=== PATIENT | male | born 1960 | race Caucasian/White ===

== ENCOUNTER 2017-09-12 13:29 | Observation (INO) ==
[2017-09-12] MEDS: NITROGLYCERIN 0.4 MG/TAB BTL SL PRN ×3 (13:40→13:55)
[2017-09-12] MEDS ORDERED: ASPIRIN 81 MG TAB.CHEW PO ONE (13:42)
[2017-09-12] MEDS ORDERED: ASPIRIN 81 MG TAB.CHEW ONE (13:47)
[2017-09-12 13:59] LABS: Hematocrit 41.3 % (42.0-52.0); Hemoglobin 14.8 gm/dL (13.5-18.0); Mean Cell Volume 88.6 fl (78-100); Mean Corpuscular Hemoglobin 31.8 pg (27-31); Mean Corpuscular Hgb Conc 35.8 g/dl (32-36); Mean Platelet Volume 9.4 fl (8-11.3); Neutrophil # 4.1 K/mm3 (1.3-6.0); Neutrophil % 67.4 % (42-75.0); Platelet Count 167 K/mm3 (150-450); Red Blood Count 4.66 M/mm3 (4.7-6.0); Red Cell Distribution Width 12.8 % (11.5-14.0); White Blood Count 6.1 K/mm3 (4.0-10.5)
[2017-09-12] MEDS ORDERED: MAG HYDROX/ALUMINUM HYD/SIMETH 30 ML UDC PO ONE (14:02)
[2017-09-12] MEDS ORDERED: BELLADONNA ALKALOIDS/PHENOBARB 60 ML BTL PO ONE (14:02)
[2017-09-12] MEDS ORDERED: LIDOCAINE HCL 20 ML UDC PO ONE (14:02)
[2017-09-12 14:07] LABS: Prothrombin Time (Patient) 10.3 Seconds (9.0-11.0)
[2017-09-12 14:14] LABS: INR 1.03 INR (0.90-1.10)
[2017-09-12 14:20] LABS: ALT 25 U/L (19-67); AST 20 U/L (0-48); Alkaline Phosphatase * 96 U/L (50-170); Anion Gap 13.1 mmol/L (6.8-13.8); BUN/Creatinine Ratio 13.5 (9.0-21.6); Bilirubin, Total 0.8 mg/dL (0.0-1.1); Blood Urea Nitrogen 18 mg/dL (6-23); Ca. Corrected For Albumin 8.7 mg/dL (8.4-10.2); Carbon Dioxide 28.7 mmol/L (24-32.6); Chloride 102 mmol/L (97-106); Glucose * 114 mg/dL (70-110); Potassium 3.8 mmol/L (3.4-4.6); Sodium 140 mmol/L (132-142); Total Protein 7.2 gm/dL (6.2-8.2); Troponin I Less than 0.017 ng/ml (0.00-0.10)
--- NOTE | 2017-09-12 14:53 | ERNOTE ---
Chest Pain/Cardiac HPI Date of Service: 09/12/17 Chief Complaint: Chest Pain Time Seen by Provider: 09/12/17 13:30 Source: patient, family, RN/MD, RN notes reviewed, past records Exam Limitations: no limitations Immunizations: IMMUNIZATION HX Immunizations Up to Date Yes History of Influenza Vaccine Yes Hx Pneumococcal Vaccination No Allergies/Adverse Reactions: Allergies simvastatin [From Zocor] Adverse Reaction (Mild, Verified 09/12/17 13:40) joint aches joint aches hay fever Allergy (Mild, Uncoded 09/12/17 13:40) Sneezing Home Medications: HOME MEDICATIONS Clopidogrel Bisulfate [Plavix] 75 mg PO DAILY 08/25/12 [Last Taken 09/05/17] Nitroglycerin 0.4 mg SL PRN #30 tab.subl 08/25/12 [Last Taken 10/17/13 12:00] Rosuvastatin Calcium [Crestor] 20 mg PO DAILY 08/25/12 [Last Taken 09/11/17] Diltiazem HCl [Diltiazem 24Hr ER] 360 mg PO DAILY 02/03/13 [Last Taken 09/11/17] Acetaminophen [Tylenol] 650 mg PO Q6H PRN 10/17/13 [Last Taken Unknown] Aspirin [Aspirin Enteric Coated] 81 mg PO DAILY #0 tablet. 10/18/13 [Last Taken 09/05/17] Metoprolol Succinate [Toprol Xl] 25 mg PO DAILY 02/18/14 [Last Taken 09/11/17] meloxicam 15 mg tablet 15 mg PO DAILY PRN 09/03/17 [Last Taken 09/08/17] Pain Score #1 Pain Score: 7 Narrative: Warren is a 57 year old male who presents to the ED with chest pain. He was just discharged after having a colonoscopy. He was in the parking lot and came back in. His pain is in his left chest and radiates down his left arm. He reports that he had the same pain with his previous heart attacks. He also reports some shortness of breath. Date (Duration): 09/12/17 Timing: constant Severity/Quality: moderate, aching Location: left chest Chest Pain Radiation: arms - Left Activities at Onset: other Nitro Today/Relief: no nitro taken today Aspirin Treatment Today: no aspirin today Associated Symptoms: Absent: headache, dizziness, cough, heartburn, nausea, vomiting, abdominal pain Prior Chest Pain/Cardiac Workup: Reports: prior chest pain, heart attack, cardiac cath Prior Treatment: Reports: recently seen Review of Systems - Review of Systems Constitutional: Absent: recent illness, fever, chills EYE: Present: no symptoms reported ENT: Present: no symptoms reported Respiratory: Present: shortness of breath. Absent: cough, orthopnea, wheezing Cardiology: Present: chest pain. Absent: palpitations, syncope, edema Gastrointestinal/Abdominal: Absent: nausea, vomiting, abdominal pain Genitourinary: Present: no symptoms reported Musculoskeletal: Absent: muscle pain, joint pain Skin: Absent: lesions, lumps Neurological: Absent: headache, dizziness/light-headedness Endocrine: Present: no symptoms reported Hematologic/Lymphatic: Present: easy bruising, easy bleeding Psych: Present: no symptoms reported Medical History (Last Reviewed 09/12/17 @ 13:39 by Amna Benjamin RN) Current drinker of alcohol Former tobacco use Lives with spouse Rectal bleeding Onset Date: ~04/13/10 Uses hearing aid Bilateral tinnitus Onset Date: Unknown Coronary artery disease Onset Date: ~2007 Hard of hearing Onset Date: Unknown Hyperlipidemia Onset Date: Unknown Hypertension Onset Date: Unknown Injury Onset Date: ~1994 History of blood transfusion Onset Date: Unknown History of unstable angina Onset Date: 03/08/10 Myocardial infarction Onset Date: Unknown Surgical History: Surgical History (Last Updated 09/12/17 @ 13:39 by Amna Benjamin RN) Hx of colonoscopy History of cardiac catheterization Onset Date: Unknown History of coronary artery stent placement Onset Date: 09/04/07 History of hand surgery Onset Date: 01/26/95 history of leg surgery Onset Date: ~1973 Family History: Family History (Last Reviewed 09/12/17 @ 10:51 by Vonda Cesar) Brother Coronary artery disease Father Age: 84 Prostate cancer Dementia COPD (chronic obstructive pulmonary disease) Mother Age: 79 Dementia CVA (cerebral vascular accident) Brother Alive and well Son Alive and well Son Alive and well Social History: Preferred Language Maltese Do you have any rastafari or No cultural preference? Smoking Status Never smoker Alcohol Use occasionally Drug Use none Physical Exam - Physical Exam General Appearance: Present: wd/wn, mild distress, other - Groggy Head Exam: Present: normal inspection Neck: Present: normal inspection, nontender, supple, full range of motion Respiratory: Present: no respiratory distress, no accessory muscle use, chest nontender, wheezing - mild Cardiovascular/Chest: Present: regular rate, rhythm, no murmur, normal peripheral pulses Gastrointestinal/Abdominal: Present: nontender, nondistended, soft Extremity Exam: Present: normal inspection, normal range of motion, no edema Neurological Exam: Present: oriented, no motor/sensory deficits, other - Dysphoric. Absent: alert, normal mood/affect Skin Exam: Present: normal color, warm/dry ED Progress - Results and Orders Patient's Lab Results:: I have reviewed the patient's lab results. - Vital Signs Patient's Vital Signs:: I have reviewed the patient's vital signs. Vital Signs: Vital Signs 09/12/17 13:29 09/12/17 13:49 09/12/17 13:53 Temperature 36.3 C Pulse Rate 98 98 90 Respiratory Rate 14 99 H Blood Pressure 171/89 H 146/92 H O2 Sat by Pulse Oximetry 90 L 95 09/12/17 13:56 09/12/17 14:08 09/12/17 14:27 Temperature Pulse Rate 87 78 93 Respiratory Rate 14 13 13 Blood Pressure 138/84 126/78 122/79 O2 Sat by Pulse Oximetry 94 96 94 09/12/17 14:38 Temperature Pulse Rate 91 Respiratory Rate 18 Blood Pressure 126/80 O2 Sat by Pulse Oximetry 97 - EKG EKG: NSR EKG read: Reviewed by me - X-Ray X-Ray #1 X-Ray: chest Interpretation: Interp. by me X-ray Comments: No acute cardiopulmonary process - Progress/Reassessment Chief Complaint: Chest Pain Progress:: Improved Plan - Plan Plan: Chest pain improved slightly with Ntg SL x3 from 08/26 to 06/26. A GI cocktail was given as anesthesia had reported that the patient had a lot of secretions and required quite a bit of suctioning after the procedure. His pain did not change with this. His city collector is Dr. Man. The patient requested that his city collector be contacted but he is on vacation until 09/15. His PCP, Dr. Fonseca, was contacted and the patient will be admitted to med/surg as observation status to r/o HI. The patient is more alert with stable vitals and his lungs are now clear. He rates his pain at 4/10. He believes it is improving with rest. He does not wish to take anything else for pain currently. Departure Clinical Impression: Chest pain, rule out acute myocardial infarction - Departure Disposition: Still a patient Condition: Stable Referrals: Pepe Fonseca DO [Primary Care Provider] -
[2017-09-12] MEDS ORDERED: ACETAMINOPHEN 325 MG TABLET PO PRN (16:05)
[2017-09-12] MEDS ORDERED: MELOXICAM 15 MG TABLET PO PRN (16:05)
--- NOTE | 2017-09-12 16:44 | HP ---
Chief Complaint - Chief Complaint Date of Service: 09/12/17 Time of Service: 16:43 Chief Complaint: Chest Pain History of Present Illness: Jim is a 57 yo male that had colonoscopy today. During the procedure he had increased mucus production and anesthesia suctioned to help with respiration. Upon awakening from sedation he reported chest pain that was felt to be related to the procedure vs inflammation from the mucus. He was discharged from post anesthesia care but after leaving he felt the chest pain worsened and he returned to the ER. Initial evaluation in the ER was negative for acute OH, however due to his history of coronary artery disease and having held his plavix for a week prior to colonosopy medicine was contacted for admission for further observation. He reports that prior to colonoscopy he had been doing well without concerns. Since awakening he has noticed cough, increased phlegm, and hoarseness. Medical History (Last Reviewed 09/29/17 @ 10:09 by Kim Ortega RN) Lives with spouse (Acute) Onset Date: Unknown Uses hearing aid (Acute) Onset Date: Unknown Current drinker of alcohol (Acute) Onset Date: Unknown Former tobacco use (Acute) Onset Date: Unknown Rectal bleeding (Acute) Onset Date: 04/13/10 Hard of hearing (Chronic) Onset Date: Unknown Hyperlipidemia (Chronic) Onset Date: Unknown Myocardial infarction (Inactive) Onset Date: Unknown Injury (Resolved) Onset Date: 1994 Hypertension (Chronic) Onset Date: Unknown Coronary artery disease (Chronic) Onset Date: 2007 History of blood transfusion (Inactive) Onset Date: Unknown Bilateral tinnitus (Chronic) Onset Date: Unknown History of unstable angina (Inactive) Onset Date: 03/08/10 Bronchitis Surgical History: Surgical History (Last Reviewed 09/29/17 @ 10:09 by Kim Ortega RN) Hx of colonoscopy (Resolved) Onset Date: 09/12/17 history of leg surgery (Resolved) Onset Date: 1973 History of hand surgery (Resolved) Onset Date: 01/26/95 History of coronary artery stent placement (Resolved) Onset Date: 09/04/07 History of cardiac catheterization (Resolved) Onset Date: Unknown Family History: Family History (Last Reviewed 09/29/17 @ 10:09 by Kim Ortega RN) Brother Coronary artery disease Father Age: 84 Prostate cancer Dementia COPD (chronic obstructive pulmonary disease) Mother Age: 79 Dementia CVA (cerebral vascular accident) Brother Alive and well Son Alive and well Son Alive and well Social History: Patient Lives/Resources With Spouse Utilized Occupation Heavy equipment Preferred Language [place] Citizen Do you have any mormon or No cultural preference? Smoking Status Former smoker Have you smoked in the past 12 No months Do you dip or chew tobacco No Alcohol Use occasionally Drug Use none Review Of Systems (GEN) - Review of Systems Generalized/Overall Review: Present: Chills. Absent: Weakness, Fever, Fatigue EENTM: Present: Throat Pain. Absent: Ear Pain Respiratory: Present: Cough, Shortness of Breath Cardiac: Present: Chest Pain. Absent: Edema, Palpitations Abdominal: Absent: Nausea, Vomiting Genitourinary: Present: No Symptoms Reported Musculoskeletal: Present: No Symptoms Reported Neurological: Present: No Symptoms Reported Skin: Present: No Symptoms Reported Immunizations: IMMUNIZATION HX Immunizations Up to Date Yes History of Influenza Vaccine Yes Hx Pneumococcal Vaccination No Allergies/Adverse Reactions: Allergies Allergy/AdvReac Type Severity Reaction Status Date / Time simvastatin [From Zocor] AdvReac Mild joint aches Verified 09/29/17 10:10 hay fever Allergy Mild Sneezing Uncoded 09/12/17 13:40 Home Medications: HOME MEDICATIONS Clopidogrel Bisulfate [Plavix] 75 mg PO DAILY 08/25/12 [Last Taken 09/05/17] Nitroglycerin 0.4 mg SL PRN #30 tab.subl 08/25/12 [Last Taken 10/17/13 12:00] Rosuvastatin Calcium [Crestor] 20 mg PO DAILY 08/25/12 [Last Taken 09/11/17] Diltiazem HCl [Diltiazem 24Hr ER] 360 mg PO DAILY 02/03/13 [Last Taken 09/11/17] Aspirin [Aspirin Enteric Coated] 81 mg PO DAILY #0 tablet.dr 10/18/13 [Last Taken 09/05/17] Metoprolol Succinate [Toprol Xl] 25 mg PO DAILY 02/18/14 [Last Taken 09/11/17] amoxicillin 500 mg capsule 500 mg PO BID 10 Days #20 cap 09/27/17 [Last Taken Unknown] meloxicam 15 mg tablet 15 mg PO DAILY PRN #30 tab 09/29/17 [Last Taken Unknown] Exam - Exam Vital Signs: Vital Signs - Last Taken Temp 36.5 C 09/12/17 15:00 Pulse 106 H 09/12/17 16:28 Resp 16 09/12/17 15:00 BP 141/78 H 09/12/17 15:00 Pulse Ox 94 09/12/17 14:53 Constitutional: Present: Alert, Oriented x3, Cooperative ENT Exam: Present: hearing grossly normal Eye Exam: bilateral eye: normal inspection Respiratory: Present: lungs clear, normal breath sounds Cardiovascular/Chest: Present: regular rate, rhythm, no murmur Abdomen: Present: Normal bowel sounds, soft, nontender, nondistended, no rebound tenderness, no hepatospenomegaly Skin Exam: Present: normal color, warm/dry, no cyanosis Appearance: Present: appropriate appearance, appropriate insight Eye contact: Present: cooperative, good eye contact, normal speech Thoughts: Present: normal thought pattern, no apparent hallucination Diagnostic Studies: Abnormal Lab Results 09/12/17 09/12/17 Range/Units 13:51 13:51 RBC 4.66 L (4.7-6.0) M/mm3 Hct 41.3 L (42.0-52.0) % MCH 31.8 H (27-31) pg Est GFR (Non-Af Amer) 59 L (60-130) mL/min Random Glucose 114 H (70-110) mg/dL Laboratory Results WBC 6.1 K/mm3 (4.0-10.5) 09/12/17 13:51 RBC 4.66 M/mm3 (4.7-6.0) L 09/12/17 13:51 Hgb 14.8 gm/dL (13.5-18.0) 09/12/17 13:51 Hct 41.3 % (42.0-52.0) L 09/12/17 13:51 MCV 88.6 fl (78-100) 09/12/17 13:51 MCH 31.8 pg (27-31) H 09/12/17 13:51 MCHC 35.8 g/dl (32-36) 09/12/17 13:51 RDW 12.8 % (11.5-14.0) 09/12/17 13:51 Plt Count 167 K/mm3 (150-450) 09/12/17 13:51 MPV 9.4 fl (8-11.3) 09/12/17 13:51 Immature Gran % (Auto) 0.20 % (0.001-0.429) 09/12/17 13:51 Immature Gran # (Auto) 0.01 K/mm3 (0.000-0.0310) 09/12/17 13:51 Neutrophils % 67.4 % (42-75.0) 09/12/17 13:51 Lymphocytes % 25.5 % (20-51) 09/12/17 13:51 Monocytes % 6.4 % (0.0-9) 09/12/17 13:51 Eosinophils % 0.3 % (0.0-3.0) 09/12/17 13:51 Basophils % 0.2 % (0.0-1.0) 09/12/17 13:51 Nucleated RBC % 0.0 k/mm3 (0-1) 09/12/17 13:51 Neutrophils # 4.1 K/mm3 (1.3-6.0) 09/12/17 13:51 Lymphocytes # 1.55 k/mm3 (1.5-3.5) 09/12/17 13:51 Monocytes # 0.4 k/mm3 (0.0-1.0) 09/12/17 13:51 Eosinophils # 0.0 k/mm3 (0.0-0.7) 09/12/17 13:51 Absolute Basophils 0.0 k/mm3 (0.0-0.1) 09/12/17 13:51 PT 10.3 Seconds (9.0-11.0) 09/12/17 13:51 INR (Anticoag Therapy) 1.03 INR (0.90-1.10) 09/12/17 13:51 PTT (Maryjane) 27.0 Seconds (24-32) 09/12/17 13:51 Sodium 140 mmol/L (132-142) 09/12/17 13:51 Plasma Sodium 140 mmol/L (130-142) 09/12/17 13:51 Potassium 3.8 mmol/L (3.4-4.6) 09/12/17 13:51 Chloride 102 mmol/L (97-106) 09/12/17 13:51 Carbon Dioxide 28.7 mmol/L (24-32.6) 09/12/17 13:51 Anion Gap 13.1 mmol/L (6.8-13.8) 09/12/17 13:51 BUN 18 mg/dL (6-23) 09/12/17 13:51 Creatinine 1.33 mg/dL (0.4-1.4) 09/12/17 13:51 Est GFR (Non-Af Amer) 59 mL/min (60-130) L 09/12/17 13:51 BUN/Creatinine Ratio 13.5 (9.0-21.6) 09/12/17 13:51 Random Glucose 114 mg/dL (70-110) H 09/12/17 13:51 Calcium 9.0 mg/dL (7.9-10.9) 09/12/17 13:51 Calcium Adj for Albumin 8.7 mg/dL (8.4-10.2) 09/12/17 13:51 Total Bilirubin 0.8 mg/dL (0.0-1.1) 09/12/17 13:51 AST 20 U/L (0-48) 09/12/17 13:51 ALT 25 U/L (19-67) 09/12/17 13:51 Alkaline Phosphatase 96 U/L (50-170) 09/12/17 13:51 Troponin I Less than 0.017 ng/ml (0.00-0.10) 09/12/17 13:51 Total Protein 7.2 gm/dL (6.2-8.2) 09/12/17 13:51 Albumin 4.0 gm/dl (3.4-5.0) 09/12/17 13:51 Assessment/Plan - Assessment/Plan (1) Chest pain Assessment: Jim is a 57 yo male with chest pain with history of CAD. Due to this will admit to observation with telemetry and repeat EKG and troponins. Suspect that this is related to the colonoscopy and not angina. However, since he has been holding his plavix and does have history of stenting there is concern for possible stent occlusion. Problem: Acute
[2017-09-12] MEDS ORDERED: ALBUTEROL SULFATE 2.5 MG/0.5 ML VIAL.NEB IH ONE (17:00)
--- NOTE | 2017-09-12 20:58 | DS ---
(1) Chest pain, rule out acute myocardial infarction Problem: Acute (2) Chest pain Problem: Acute (3) HTN (hypertension) Problem: Chronic Qualifiers: Hypertension type: essential hypertension Qualified Code(s): I10 - Essential (primary) hypertension (4) HLD (hyperlipidemia) Problem: Chronic Qualifiers: Hyperlipidemia type: pure hypercholesterolemia Qualified Code(s): E78.00 - Pure hypercholesterolemia, unspecified; E78.0 - Pure hypercholesterolemia Description of Stay: Mr. Foley is a 57-yr-old pt with a PMH of: Angina, CAD, HTN, HLD & AZ who was admitted with complaints of chest pain. He had just been discharged after a colonoscopy procedure and apparently when he got to the parking lot, he developed LT side chest pain which radiated to the LT arm, and thererefore came to the ED right away. He reported that the pain he had was similar to the previous heart attacks he had. He denied the associated symptoms on N/V, SOB, & Diaphoresis. At the ED, he was given Nitro SL x 3 & GI cocktail which resolved his pain from a 7/10 to a 4/10. The first troponin and EKG were negative of ACS/ AZ. He was then admitted under observation for repeat EKG and Troponin given his cardiac risk factors, and the results were also negative of ACS/AZ. The plan was to discharge if he ruled out with the second results of EKG/Troponin. He was informed of the second troponin slight increase, but within the NR. He reported that he still had a slight discomfort on the LT chest, but nothing like when he came in. I advised him that we can keep him overnight in the hospital to repeat the third troponin and EKG, but he firmly declined stating that he felt okay to go home, and that he would follow-up with his county administrator. Patient education on chest pain provided to the pt, and he was advised to return to the hospital if c.p did not resolve along with accompanying symptom of SOB, N/V & Diaphoresis. He was determined to be in stable condition to be discharged home and was advised to follow-up with his PCP and county administrator. Procedures Performed: none Results and Findings: Lab Pending Results 09/12/17 13:51: WBC 6.1, RBC 4.66 L, Hgb 14.8, Hct 41.3 L, MCV 88.6, MCH 31.8 H , MCHC 35.8, RDW 12.8, Plt Count 167, MPV 9.4, Immature Gran % (Auto) 0.20, Immature Gran # (Auto) 0.01, Neutrophils % 67.4, Lymphocytes % 25.5, Monocytes % 6.4, Eosinophils % 0.3, Basophils % 0.2, Nucleated RBC % 0.0, Neutrophils # 4.1, Lymphocytes # 1.55, Monocytes # 0.4, Eosinophils # 0.0, Absolute Basophils 0.0 09/12/17 13:51: PT 10.3, INR (Anticoag Therapy) 1.03, PTT (Manati) 27.0 09/12/17 13:51: Sodium 140, Plasma Sodium 140, Potassium 3.8, Chloride 102, Carbon Dioxide 28.7, Anion Gap 13.1, BUN 18, Creatinine 1.33, Est GFR (Non-Af Amer) 59 L, BUN/Creatinine Ratio 13.5, Random Glucose 114 H, Calcium 9.0, Calcium Adj for Albumin 8.7, Total Bilirubin 0.8, AST 20, ALT 25, Alkaline Phosphatase 96, Troponin I Less than 0.017, Total Protein 7.2, Albumin 4.0 09/12/17 20:10: Troponin I 0.054 Discharge Location: Home Disposition: Home self-group home Health Agency: [facility] Health Condition: Stable Discharge Activity: Activity as tolerated Discharge Diet: General/regular food Referrals: Pepe Fonseca DO [Primary Care Provider] - Problem Oriented Discharge Instructions to Patient/Family: Chest Pain Observation Additional Patient Instructions (free text): Please follow-up with yout PCP next week. Complete Home Medications List: Complete Home Medication List: Clopidogrel Bisulfate [Plavix] 75 mg PO DAILY 08/25/12 Nitroglycerin 0.4 mg SL PRN #30 tab.subl 08/25/12 Rosuvastatin Calcium [Crestor] 20 mg PO DAILY 08/25/12 Diltiazem HCl [Diltiazem 24Hr ER] 360 mg PO DAILY 02/03/13 Acetaminophen [Tylenol] 650 mg PO Q6H PRN 10/17/13 Aspirin [Aspirin Enteric Coated] 81 mg PO DAILY #0 tablet. 10/18/13 Metoprolol Succinate [Toprol Xl] 25 mg PO DAILY 02/18/14 meloxicam 15 mg tablet 15 mg PO DAILY PRN 09/03/17
[2017-09-12] MEDS ORDERED: ROSUVASTATIN CALCIUM 20 MG TABLET PO SCH (21:00)
[2017-09-12 21:31] VITALS: BP 127/74
[2017-09-13] MEDS ORDERED: METOPROLOL SUCCINATE 25 MG TABLET.SA PO SCH (09:00)
[2017-09-13] MEDS ORDERED: DILTIAZEM HCL 180 MG CAP.SR.24H PO SCH (09:00)
[2017-09-13] MEDS ORDERED: CLOPIDOGREL BISULFATE 75 MG TABLET PO SCH (09:00)
[2017-09-13] MEDS ORDERED: ASPIRIN 81 MG TABLET.DR PO SCH (09:00)
== END 2017-09-12 21:30 | disposition home or self-care (01) ==
LOC: MS 13:29 → ER 13:29 → MS 15:13
PROVIDERS: ADMIT Family Medicine; ATTEND Family Medicine
CPT/HCPCS: 36415; 71010; 71045; 80053; 84484; 85025; 85610; 85730; 88305; 93005; 94640; 94664; 99285; G0378